=== PATIENT | female | born 1945 | race Caucasian/White ===

== ENCOUNTER 2021-08-18 18:38 | Inpatient (IN) ==
[2021-08-19] MEDS ORDERED: *HR* Dextrose 50 % in Water (Syg) 50 ML SYRINGE IVP PRN ×2 (14:45→14:47)
[2021-08-19] MEDS ORDERED: D5% in Water 1,000 ML IVC PRN (14:47)
[2021-08-19] MEDS ORDERED: Dextrose Gel 15 GM/37.5 ML TUBE PO PRN ×2 (14:47)
[2021-08-19] MEDS: Insulin LISPRO 300 UNITS/3 ML VIAL SUBQ SCH ×2 (17:30→21:02)
[2021-08-19] MEDS: Ascorbic Acid 500 MG TABLET PO SCH (17:30)
[2021-08-19] MEDS: cephALEXin 500 MG CAPSULE PO SCH ×2 (17:30→20:41)
[2021-08-19] MEDS: *HR* OxyCODONE Immed Rel 5 MG TABLET PO PRN (20:40)
[2021-08-19] MEDS: Aspirin Enteric Coated 81 MG Tablet PO SCH (20:40)
[2021-08-19] MEDS ORDERED: Insulin DETEMIR 100 UNIT/ML X5UNITS SUBQ SCH (21:00)
[2021-08-19] MEDS ORDERED: Insulin DETEMIR 100 UNIT/ML per UNIT SUBQ ONE (21:00)
[2021-08-20] MEDS: *HR* Enoxaparin 40 MG/0.4 ML SYRINGE SQ SCH (03:38)
[2021-08-20] MEDS: *HR* OxyCODONE Immed Rel 5 MG TABLET PO PRN ×3 (03:38→20:40)
[2021-08-20] MEDS ORDERED: hydrALAZINE 10 MG TABLET PO ONE (05:45)
[2021-08-20 05:53] LABS: Basophils % 0.2 %; Eosinophils # 0.2 K/mcL (0.0-0.6); Eosinophils % 1.4 %; Hemoglobin 7.5 g/dL (11.5-15.4); Immature Granulocytes % 1.4 % (0-4); Lymphocytes % 7.7 %; Mean Corpuscular HGB Conc 31.3 g/dL (31.6-35.5); Mean Corpuscular Hemoglobin 29.6 pg (28.0-33.3); Mean Corpuscular Volume 94.9 fL (83.0-100.0); Mean Platelet Volume 9.7 fL (9.4-12.4); Monocytes # 1.2 K/mcL (0.0-1.3); Monocytes % 9.3 %; Platelet Count 157 K/mcL (140-400); Red Blood Count 2.53 M/mcL (3.82-4.97); Red Cell Distribution Width 16.1 % (11.5-14.5); White Blood Count 13.2 K/mcL (4.3-11.1)
[2021-08-20 06:07] LABS: Neutrophils # 10.6 K/mcL (1.6-8.9)
[2021-08-20 06:11] LABS: BUN/Creatinine Ratio 26 (6-26); Blood Urea Nitrogen 22 mg/dL (8-23); Calcium 8.1 mg/dL (8.6-10.3); Carbon Dioxide 27 mEq/L (23-29); Chloride 103 mEq/L (98-107); Glucose 141 mg/dL (70-105); Osmolality,Calculated 284 (280-300); Potassium 4.9 mEq/L (3.5-5.1); Sodium 134 mEq/L (136-145); eGFR For African Americans > 60 (> 60); eGFR For Non-African Americans > 60 (> 60)
[2021-08-20 06:30] LABS: Bilirubin,Urine Negative (Negative); Blood,Urine Negative (Negative); Clarity,Urine Clear (Clear); Color,Urine Yellow (Yellow); Glucose,Urine (UA) Normal (Normal); Ketones,Urine Negative (Negative); Leukocyte Esterase,Urine Negative (Negative); Nitrite,Urine Negative (Negative); Protein,Urine 30 mg/dL (Neg-Trace); Specific Gravity,Urine 1.025 (1.010-1.025); Urobilinogen,Urine Normal (Normal)
[2021-08-20 06:33] LABS: Bacteria,Urine Few per hpf (None-Few); RBC,Urine 0-3 per hpf (0-3); Squamous Epithelial Cell,Urine Few per hpf (None-Few); WBC,Urine 0-3 per hpf (0-3)
[2021-08-20] MEDS ORDERED: *HR* Enoxaparin 40 MG/0.4 ML SYRINGE SQ SCH (07:00)
[2021-08-20] MEDS: polyethylene glycoL 3350 17 GM POWD.PACK PO SCH (08:22)
[2021-08-20] MEDS: Aspirin Enteric Coated 81 MG Tablet PO SCH ×2 (08:22→20:40)
[2021-08-20] MEDS: Multivit/Ca/Min/Fe/FA 1 TAB TABLET PO SCH (08:22)
[2021-08-20] MEDS: cephALEXin 500 MG CAPSULE PO SCH ×3 (08:22→20:41)
[2021-08-20] MEDS: Ascorbic Acid 500 MG TABLET PO SCH ×2 (08:22→16:28)
[2021-08-20] MEDS: Insulin LISPRO 300 UNITS/3 ML VIAL SUBQ SCH ×4 (08:31→20:45)
[2021-08-20] MEDS: Insulin DETEMIR 100 UNIT/ML X5UNITS SUBQ SCH ×2 (08:32→20:45)
[2021-08-20] MEDS: Ezetimibe [Zetia] 10 MG Tablet PO SCH (13:44)
[2021-08-21] MEDS: cloNIDine HCL 0.1 MG TABLET PO PRN (03:52)
[2021-08-21] MEDS: *HR* OxyCODONE/APAP 7.5/325 TABLET PO PRN ×2 (03:52→16:07)
[2021-08-21] MEDS: *HR* Enoxaparin 40 MG/0.4 ML SYRINGE SQ SCH (03:54)
[2021-08-21 06:05] LABS: Hematocrit 21.5 % (35.3-44.9); Hemoglobin 6.8 g/dL (11.5-15.4); Mean Corpuscular HGB Conc 31.6 g/dL (31.6-35.5); Mean Corpuscular Hemoglobin 29.8 pg (28.0-33.3); Mean Corpuscular Volume 94.3 fL (83.0-100.0); Platelet Count 154 K/mcL (140-400); Red Blood Count 2.28 M/mcL (3.82-4.97); Red Cell Distribution Width 16.3 % (11.5-14.5)
[2021-08-21] MEDS: polyethylene glycoL 3350 17 GM POWD.PACK PO SCH (07:32)
[2021-08-21] MEDS: Multivit/Ca/Min/Fe/FA 1 TAB TABLET PO SCH (07:34)
[2021-08-21] MEDS: cephALEXin 500 MG CAPSULE PO SCH ×3 (07:34→20:27)
[2021-08-21] MEDS: *HR* OxyCODONE Immed Rel 5 MG TABLET PO PRN ×3 (07:34→20:28)
[2021-08-21] MEDS: Ascorbic Acid 500 MG TABLET PO SCH ×2 (07:35→16:07)
[2021-08-21] MEDS: Aspirin Enteric Coated 81 MG Tablet PO SCH ×2 (07:35→21:55)
[2021-08-21] MEDS: Sennosides/Docusate Sodium TABLET PO SCH ×2 (07:35→20:27)
[2021-08-21] MEDS: Insulin LISPRO 300 UNITS/3 ML VIAL SUBQ SCH ×4 (07:42→20:33)
[2021-08-21] MEDS: Insulin DETEMIR 100 UNIT/ML X5UNITS SUBQ SCH ×2 (07:42→20:30)
[2021-08-21] MEDS ORDERED: 0.9 % Sodium Chloride 250 ML IVC SCH (07:45)
[2021-08-21] MEDS: Ezetimibe [Zetia] 10 MG Tablet PO SCH (10:27)
[2021-08-22] MEDS: *HR* OxyCODONE/APAP 7.5/325 TABLET PO PRN ×3 (00:36→11:49)
[2021-08-22 05:20] LABS: Basophils % 0.2 %; Eosinophils # 0.4 K/mcL (0.0-0.6); Eosinophils % 3.5 %; Hematocrit 25.9 % (35.3-44.9); Immature Granulocytes % 4.1 % (0-4); Lymphocytes # 1.6 K/mcL (0.6-4.6); Lymphocytes % 12.9 %; Mean Corpuscular HGB Conc 32.4 g/dL (31.6-35.5); Mean Corpuscular Hemoglobin 29.8 pg (28.0-33.3); Mean Corpuscular Volume 91.8 fL (83.0-100.0); Mean Platelet Volume 9.8 fL (9.4-12.4); Monocytes # 1.5 K/mcL (0.0-1.3); Monocytes % 12.6 %; Neutrophils # 8.1 K/mcL (1.6-8.9); Nucleated Red Blood Cells 0.2 /100 WBC (0); Platelet Count 188 K/mcL (140-400); Red Blood Count 2.82 M/mcL (3.82-4.97); Red Cell Distribution Width 17.2 % (11.5-14.5); Segmented Neutrophils % 66.7 %; White Blood Count 12.1 K/mcL (4.3-11.1)
[2021-08-22 05:23] LABS: Hemoglobin 8.4 g/dL (11.5-15.4)
[2021-08-22 05:36] LABS: BUN/Creatinine Ratio 28 (6-26); Blood Urea Nitrogen 21 mg/dL (8-23); Calcium 8.3 mg/dL (8.6-10.3); Carbon Dioxide 27 mEq/L (23-29); Chloride 101 mEq/L (98-107); Glucose 128 mg/dL (70-105); Osmolality,Calculated 285 (280-300); Potassium 4.2 mEq/L (3.5-5.1); Sodium 135 mEq/L (136-145); eGFR For African Americans > 60 (> 60); eGFR For Non-African Americans > 60 (> 60)
[2021-08-22] MEDS: *HR* Enoxaparin 40 MG/0.4 ML SYRINGE SQ SCH (06:00)
[2021-08-22] MEDS: Multivit/Ca/Min/Fe/FA 1 TAB TABLET PO SCH (08:49)
[2021-08-22] MEDS: Sennosides/Docusate Sodium TABLET PO SCH ×2 (08:50→19:50)
[2021-08-22] MEDS: Ascorbic Acid 500 MG TABLET PO SCH ×2 (08:50→16:38)
[2021-08-22] MEDS: cloNIDine HCL 0.1 MG TABLET PO PRN (08:50)
[2021-08-22] MEDS: *HR* OxyCODONE Immed Rel 5 MG TABLET PO PRN ×3 (08:50→23:53)
[2021-08-22] MEDS: Aspirin Enteric Coated 81 MG Tablet PO SCH ×2 (08:50→18:25)
[2021-08-22] MEDS: Insulin LISPRO 300 UNITS/3 ML VIAL SUBQ SCH ×4 (08:51→20:08)
[2021-08-22] MEDS: Insulin DETEMIR 100 UNIT/ML X5UNITS SUBQ SCH ×2 (08:51→20:07)
[2021-08-22] MEDS: polyethylene glycoL 3350 17 GM POWD.PACK PO SCH (08:51)
[2021-08-22] MEDS: cephALEXin 500 MG CAPSULE PO SCH ×3 (08:52→18:25)
[2021-08-22] MEDS: Ezetimibe [Zetia] 10 MG Tablet PO SCH (10:04)
[2021-08-22] MEDS: *HR* OxyCODONE/APAP 10/325 TABLET PO PRN (18:24)
[2021-08-23] MEDS: *HR* OxyCODONE/APAP 10/325 TABLET PO PRN ×4 (01:33→21:10)
[2021-08-23 04:47] LABS: Hematocrit 24.8 % (35.3-44.9)
[2021-08-23] MEDS: *HR* Enoxaparin 40 MG/0.4 ML SYRINGE SQ SCH (05:51)
[2021-08-23 08:00] LABS: % Iron Saturation 13 % (15-50); Iron 28 mcg/dL (50-170); Transferrin 159 mg/dL (203-362)
[2021-08-23] MEDS: cephALEXin 500 MG CAPSULE PO SCH ×3 (08:11→21:11)
[2021-08-23] MEDS: Ascorbic Acid 500 MG TABLET PO SCH ×2 (08:11→16:07)
[2021-08-23] MEDS: Aspirin Enteric Coated 81 MG Tablet PO SCH ×2 (08:11→21:10)
[2021-08-23] MEDS: Multivit/Ca/Min/Fe/FA 1 TAB TABLET PO SCH (08:11)
[2021-08-23] MEDS: Insulin LISPRO 300 UNITS/3 ML VIAL SUBQ SCH ×4 (08:12→21:30)
[2021-08-23] MEDS: Insulin DETEMIR 100 UNIT/ML X5UNITS SUBQ SCH ×2 (08:12→21:12)
[2021-08-23] MEDS ORDERED: Ketorolac 30 MG/ML VIAL IM ONE (08:25)
[2021-08-23] MEDS: tiZANidine 4 MG TABLET PO PRN ×2 (08:36→14:45)
[2021-08-23 08:59] LABS: Folate > 22.3 ng/mL (3.0-16.0); Vitamin B12 527 pg/mL (250-1100)
[2021-08-23] MEDS: polyethylene glycoL 3350 17 GM POWD.PACK PO SCH (12:20)
[2021-08-23] MEDS: Sennosides/Docusate Sodium TABLET PO SCH ×2 (12:20→21:31)
[2021-08-24] MEDS: *HR* OxyCODONE/APAP 10/325 TABLET PO PRN ×4 (02:18→21:42)
[2021-08-24] MEDS: *HR* Enoxaparin 40 MG/0.4 ML SYRINGE SQ SCH (06:54)
[2021-08-24] MEDS: Insulin LISPRO 300 UNITS/3 ML VIAL SUBQ SCH ×3 (08:45→17:00)
[2021-08-24] MEDS: tiZANidine 4 MG TABLET PO PRN ×2 (09:35→17:13)
[2021-08-24] MEDS: cephALEXin 500 MG CAPSULE PO SCH ×3 (09:35→21:41)
[2021-08-24] MEDS: Aspirin Enteric Coated 81 MG Tablet PO SCH ×2 (09:35→21:42)
[2021-08-24] MEDS: Multivit/Ca/Min/Fe/FA 1 TAB TABLET PO SCH (09:35)
[2021-08-24] MEDS: Ascorbic Acid 500 MG TABLET PO SCH ×2 (09:35→16:59)
[2021-08-24] MEDS: polyethylene glycoL 3350 17 GM POWD.PACK PO SCH (09:36)
[2021-08-24] MEDS: Sennosides/Docusate Sodium TABLET PO SCH (09:36)
[2021-08-24] MEDS: Insulin DETEMIR 100 UNIT/ML X5UNITS SUBQ SCH ×2 (10:49→21:43)
[2021-08-24] MEDS: *HR* OxyCODONE Immed Rel 5 MG TABLET PO PRN (17:13)
[2021-08-25] MEDS: Sennosides/Docusate Sodium TABLET PO SCH ×2 (02:10→09:16)
[2021-08-25] MEDS: Insulin LISPRO 300 UNITS/3 ML VIAL SUBQ SCH ×5 (02:10→21:27)
[2021-08-25] MEDS: *HR* OxyCODONE/APAP 10/325 TABLET PO PRN ×4 (03:03→21:25)
[2021-08-25 06:17] LABS: Hemoglobin 7.9 g/dL (11.5-15.4); Mean Corpuscular HGB Conc 31.6 g/dL (31.6-35.5); Mean Corpuscular Hemoglobin 29.6 pg (28.0-33.3); Mean Corpuscular Volume 93.6 fL (83.0-100.0); Mean Platelet Volume 9.6 fL (9.4-12.4); Platelet Count 289 K/mcL (140-400); Red Blood Count 2.67 M/mcL (3.82-4.97); Red Cell Distribution Width 17.2 % (11.5-14.5); White Blood Count 13.1 K/mcL (4.3-11.1)
[2021-08-25 06:34] LABS: Alanine Aminotransferase 13 Units/L (7-52); Albumin 2.8 g/dL (3.5-5.7); Albumin/Globulin Ratio 1.3 (1.1-2.2); Alkaline Phosphatase 169 Units/L (34-104); Aspartate Amino Transferase 20 Units/L (13-39); BUN/Creatinine Ratio 33 (6-26); Bilirubin,Total 0.9 mg/dL (0.3-1.0); Blood Urea Nitrogen 25 mg/dL (8-23); Calcium 8.5 mg/dL (8.6-10.3); Carbon Dioxide 30 mEq/L (23-29); Chloride 98 mEq/L (98-107); Globulin 2.1 g/dL (2.4-3.5); Glucose 91 mg/dL (70-105); Magnesium 1.7 mg/dL (1.6-2.6); Osmolality,Calculated 282 (280-300); Potassium 4.1 mEq/L (3.5-5.1); Sodium 134 mEq/L (136-145); Total Protein 4.9 g/dL (6.4-8.9); eGFR For African Americans > 60 (> 60); eGFR For Non-African Americans > 60 (> 60)
[2021-08-25] MEDS: tiZANidine 4 MG TABLET PO PRN (06:37)
[2021-08-25] MEDS: *HR* Enoxaparin 40 MG/0.4 ML SYRINGE SQ SCH (06:38)
[2021-08-25] MEDS: Multivit/Ca/Min/Fe/FA 1 TAB TABLET PO SCH (09:15)
[2021-08-25] MEDS: Aspirin Enteric Coated 81 MG Tablet PO SCH ×2 (09:15→21:25)
[2021-08-25] MEDS: cephALEXin 500 MG CAPSULE PO SCH ×3 (09:16→21:21)
[2021-08-25] MEDS: Ascorbic Acid 500 MG TABLET PO SCH ×2 (09:16→18:25)
[2021-08-25] MEDS: polyethylene glycoL 3350 17 GM POWD.PACK PO SCH (09:16)
[2021-08-25] MEDS: Insulin DETEMIR 100 UNIT/ML X5UNITS SUBQ SCH ×2 (09:17→21:26)
[2021-08-25] MEDS ORDERED: Ketorolac 30 MG/ML VIAL IM ONE (09:32)
[2021-08-25] MEDS: tiZANidine 4 MG TABLET PO SCH ×2 (14:00→21:24)
[2021-08-25] MEDS: cloNIDine HCL 0.1 MG TABLET PO PRN (14:32)
[2021-08-25] MEDS: lisinopriL 10 MG TABLET PO SCH (17:05)
[2021-08-25 17:10] LABS: Bilirubin,Urine Negative (Negative); Blood,Urine Negative (Negative); Clarity,Urine Clear (Clear); Color,Urine Yellow (Yellow); Glucose,Urine (UA) Normal (Normal); Ketones,Urine Trace mg/dL (Negative); Leukocyte Esterase,Urine Negative (Negative); Nitrite,Urine Negative (Negative); PH,Urine 5.5 pH Units (5.0-8.0); Protein,Urine Negative (Neg-Trace); Urobilinogen,Urine Normal (Normal)
[2021-08-26] MEDS: Sennosides/Docusate Sodium TABLET PO SCH ×2 (01:53→07:56)
[2021-08-26] MEDS: *HR* OxyCODONE/APAP 10/325 TABLET PO PRN ×4 (04:10→19:47)
[2021-08-26] MEDS: *HR* Enoxaparin 40 MG/0.4 ML SYRINGE SQ SCH (04:11)
[2021-08-26] MEDS: Insulin LISPRO 300 UNITS/3 ML VIAL SUBQ SCH ×3 (07:50→18:04)
[2021-08-26] MEDS: tiZANidine 4 MG TABLET PO SCH (07:56)
[2021-08-26] MEDS: lisinopriL 10 MG TABLET PO SCH (07:57)
[2021-08-26] MEDS: Aspirin Enteric Coated 81 MG Tablet PO SCH (07:57)
[2021-08-26] MEDS: cephALEXin 500 MG CAPSULE PO SCH ×2 (07:57→15:06)
[2021-08-26] MEDS: Multivit/Ca/Min/Fe/FA 1 TAB TABLET PO SCH (07:57)
[2021-08-26] MEDS: Ascorbic Acid 500 MG TABLET PO SCH ×2 (07:57→15:05)
[2021-08-26] MEDS: Insulin DETEMIR 100 UNIT/ML X5UNITS SUBQ SCH (07:58)
[2021-08-26] MEDS: polyethylene glycoL 3350 17 GM POWD.PACK PO SCH (07:59)
[2021-08-26 08:29] LABS: Hematocrit 19.1 % (35.3-44.9); Hemoglobin 6.1 g/dL (11.5-15.4); Mean Corpuscular HGB Conc 31.9 g/dL (31.6-35.5); Mean Corpuscular Hemoglobin 30.3 pg (28.0-33.3); Mean Platelet Volume 9.1 fL (9.4-12.4); Platelet Count 284 K/mcL (140-400); Red Blood Count 2.01 M/mcL (3.82-4.97); Red Cell Distribution Width 17.3 % (11.5-14.5); White Blood Count 16.4 K/mcL (4.3-11.1)
[2021-08-26 08:42] LABS: BUN/Creatinine Ratio 39 (6-26); Blood Urea Nitrogen 31 mg/dL (8-23); Calcium 7.8 mg/dL (8.6-10.3); Carbon Dioxide 29 mEq/L (23-29); Chloride 99 mEq/L (98-107); Glucose 121 mg/dL (70-105); Osmolality,Calculated 286 (280-300); Sodium 134 mEq/L (136-145); eGFR For African Americans > 60 (> 60); eGFR For Non-African Americans > 60 (> 60)
[2021-08-26] MEDS ORDERED: 0.9 % Sodium Chloride 500 ML IVC ONE (10:44)
[2021-08-26] MEDS ORDERED: 0.9 % Sodium Chloride 1,000 ML IVC SCH (10:45)
[2021-08-26 11:28] LABS: Basophils % 0.1 %; Eosinophils # 0.4 K/mcL (0.0-0.6); Eosinophils % 2.6 %; Hematocrit 17.7 % (35.3-44.9); Lymphocytes # 1.3 K/mcL (0.6-4.6); Lymphocytes % 8.2 %; Mean Corpuscular HGB Conc 31.6 g/dL (31.6-35.5); Mean Corpuscular Hemoglobin 30.3 pg (28.0-33.3); Mean Corpuscular Volume 95.7 fL (83.0-100.0); Mean Platelet Volume 9.2 fL (9.4-12.4); Monocytes # 1.4 K/mcL (0.0-1.3); Monocytes % 8.9 %; Platelet Count 266 K/mcL (140-400); Red Blood Count 1.85 M/mcL (3.82-4.97); Red Cell Distribution Width 17.4 % (11.5-14.5); Segmented Neutrophils % 77.2 %; White Blood Count 15.5 K/mcL (4.3-11.1)
[2021-08-26 11:32] LABS: Hemoglobin 5.6 g/dL (11.5-15.4)
[2021-08-26] MEDS ORDERED: 0.9 % Sodium Chloride 250 ML ONE (11:49)
[2021-08-26 19:54] VITALS: RESP 18
[2021-08-26 20:13] VITALS: BP 107/63; PULSE 62; TEMP 98.6; O2SAT 98
== END 2021-08-26 21:15 | disposition short-term general hospital (02) | DRG 812 ==
LOC: INPGRE 08-19 15:08
PROVIDERS: ADMIT Family Medicine; ATTEND Family Medicine